=== PATIENT | female | born 1995 | race Caucasian/White ===

== ENCOUNTER 2016-08-21 03:06 | Emergency (ER) | payer SELFPAY ==
[2016-08-21] MEDS ORDERED: ONDANSETRON HCL/PF 4 MG/ 2ML VIAL IVP ONE (03:28)
[2016-08-21] MEDS ORDERED: 0.9 % SODIUM CHLORIDE 1,000 ML IV ONE (03:28)
[2016-08-21 03:40] LABS: BASOPHILS % 0.5 (0.0-1.5); EOSINOPHILS % 1.4 % (0.0-6.8); MEAN CORPUSCULAR HEMOGLOBIN 27.5 pg (28.0-34.0); MEAN CORPUSCULAR VOLUME 85.9 fl (80.0-100.0); MONOCYTES % 4.2 % (0.0-11.0); NEUTROPHILS # 7.6 # k/uL (1.4-7.7)
[2016-08-21 03:52] LABS: eGFR (African) > 60; eGFR (Non-African) > 60
[2016-08-21] MEDS ORDERED: CEPHALEXIN 250 MG CAPSULE PO ONE (04:05)
--- NOTE | 2016-08-21 04:15 | ED Physician Documentation ---
General Adult - HISTORIAN Historian: patient - HPI Stated Complaint: sore throat Chief Complaint: General Adult Onset: days ago (2) Timing: still present Severity: moderate Further Comments: yes (Pt is a 21 yo female with sore throat, n/v, malaise. Pt' s child was ill with similar sx earlier in week.) - ROS CONST: other (malaise) EYES/ENT: sore throat CVS/RESP: none GI/: problems urinating (dysuria), vomiting, nausea MS/SKIN/LYMPH: none - PAST HX Past History: other (appendectomy) Allergies/Adverse Reactions: Allergies Allergy/AdvReac Type Severity Reaction Status Date / Time latex Allergy Verified 08/21/16 03:19 Penicillins Allergy Verified 08/21/16 03:19 Home Medications: Ambulatory Orders Medication Instructions Recorded NK [NK] 08/21/16 - SOCIAL HX Smoking History: non-smoker - FAMILY HX Family History: No - VITAL SIGNS Vital Signs: Vital Signs Temp Pulse Resp BP Pulse Ox 114/70 07/08/15 22:05 - REVIEWED ASSESSMENTS Nursing Assessment Reviewed: Yes Vitals Reviewed: Yes Progress - Progress Progress: NS 1 L IVF Zofran 4 mg IV Pt c/o dysuria, but U/A - neg. Rx Keflex 500 mg. Take one every 8 hrs for 10 days. (Pt states she is not allergic to Keflex.) General Adult Physical Exam - PHYSICAL EXAM GENERAL APPEARANCE: mild distress EENT: pharyngeal erythema NECK: normal inspection, supple RESPIRATORY: no resp distress, chest non-tender, breath sounds normal CVS: reg rate & rhythm, heart sounds normal ABDOMEN: soft, no organomegaly, normal bowel sounds BACK: normal inspection, no CVA tenderness SKIN: warm/dry, normal color EXTREMITIES: non-tender, normal range of motion, no evidence of injury NEURO: oriented X3, motor nml, sensation nml Discharge Clincal Impression: Pharyngitis Qualifiers: Pharyngitis/tonsillitis etiology: unspecified etiology Qualified Code(s): J02.9 - Acute pharyngitis, unspecified Referrals: Primary Doctor,No [Primary Care Provider] - Home Medications: Ambulatory Orders NK [NK] 08/21/16 Condition: Good Disposition: 01 HOME, SELF-CARE Decision to Admit: NO Decision Time: 04:06
[2016-08-21 05:31] LABS: APPEARANCE,URINE CLOUDY (CLEAR); COLOR,URINE AMBER (YELLOW); OCCULT BLOOD,URINE NEGATIVE (NEGATIVE); PH URINE 5.5 (5.0 - 8.0); UROBILINOGEN URINE 0.2 Eu (0.2-1.0)
[2016-08-21 06:22] VITALS: BP 116/71
== END 2016-08-21 04:40 | disposition home or self-care (01) ==
LOC: ED 03:06
DX: J02.9 Acute pharyngitis, unspecified (principal)
CPT/HCPCS: 80053; 81002; 85025; 87070; 87880; 99283; J2405; J7030; S1016

== ENCOUNTER 2016-10-01 15:11 | Outpatient (CLI) | payer SELFPAY ==
--- NOTE | 2016-10-01 19:07 | Diagnostic Imaging Report ---
MELANY SAUL [facility] [id number] [facility] [address] [address] Report Submission Date: Oct 01, 2016 4:00:49 PM CDT Patient Study Name: MAGI ROBLES Date: Oct 01, 2016 3:38:47 PM CDT Modality Type: CR Gender: F Description: SPINE : 89 Institution: [facility] Physician: MELANY SAUL Examination: Plain film lumbar spine History: Back discomfort Findings: 3 views of the lumbar spine demonstrate normal height. No anterior compression. Mild L5/S1 disc space narrowing and osteophyte formation. No soft tissue abnormalities. Impression: Early L5/S1 degenerative changes. No compression deformity. If patient's experiencing neurologic symptoms, consider obtaining MRI. Electronically signed on Oct 01, 2016 4:00:49 PM CDT by: Aly BARR
== END 2016-10-01 15:20 ==
LOC: RAD 15:11
PROVIDERS: ATTEND Physician Assistant
DX: M25.551 Pain in right hip (principal)
CPT/HCPCS: 72100

== ENCOUNTER 2016-12-06 17:21 | Emergency (ER) | payer OTHER ==
--- NOTE | 2016-12-06 17:30 | ED Physician Documentation ---
General Adult - HISTORIAN Historian: patient - HPI Stated Complaint: dental pain Chief Complaint: General Adult Onset: hours Timing: still present Severity: moderate Further Comments: yes (Pt is a 21 yo female with dental pain since this am when one of her fillings came out. Pt has a dentist appointment tomorrow.) - ROS CONST: no problems EYES/ENT: other (dental pain) CVS/RESP: none GI/: none MS/SKIN/LYMPH: none - PAST HX Past History: other (appendectomy) Allergies/Adverse Reactions: Allergies Allergy/AdvReac Type Severity Reaction Status Date / Time latex Allergy Verified 12/06/16 17:52 Penicillins Allergy Rash Verified 12/06/16 17:52 Home Medications: Ambulatory Orders Medication Instructions Recorded NK [NK] 08/21/16 - SOCIAL HX Smoking History: non-smoker - FAMILY HX Family History: No - VITAL SIGNS Vital Signs: Vital Signs Temp Pulse Resp BP Pulse Ox 116/71 08/21/16 04:50 - REVIEWED ASSESSMENTS Nursing Assessment Reviewed: Yes Vitals Reviewed: Yes Progress - Progress Progress: Rx [place] (5/325). Take 1 or 2 tablets by mouth every 4 to 6 hrs as needed for moderate to severe pain. Disp: #10 Rx Keflex 500 mg. Take one every 8 hrs for 10 days. (Pt had initially said she had allergies to latex and iodine, but did not mention Penicillin. An old record showed Penicillin as an allergy. Pt had been given a rx for penicilln, but this was changed to Keflex and pt and the phramacy were contacted. Pt develops rash with penicillin. f/u dentist in am as planned. General Adult Physical Exam - PHYSICAL EXAM GENERAL APPEARANCE: moderate distress EENT: other (dental tenderness, missing filling, upper right ) NECK: normal inspection, supple RESPIRATORY: no resp distress, chest non-tender CVS: reg rate & rhythm, heart sounds normal SKIN: warm/dry EXTREMITIES: non-tender, normal range of motion NEURO: oriented X3, motor nml, sensation nml Discharge Clincal Impression: Pain, dental Referrals: Primary Doctor,No [Primary Care Provider] - Condition: Good Disposition: 01 HOME, SELF-CARE Decision to Admit: NO Decision Time: 18:11
[2016-12-06 17:48] VITALS: BP 124/74
== END 2016-12-06 17:41 | disposition home or self-care (01) ==
LOC: ED 17:21
DX: K08.89 Other specified disorders of teeth and supporting structures (principal)
CPT/HCPCS: 99283